=== PATIENT | male | born 1960 | race Two or more races ===

== ENCOUNTER 2020-11-07 18:16 | Inpatient (IN) | payer OTHER ==
[~2020-11-07] VITALS: Ht 182.9 cm; Wt 99.9 kg
[2020-11-07 20:04] LABS: Basophils # (auto) 0.1 10 ^3/uL (0-0.2); Basophils % (auto) 0.5 % (0.0-2.0); Eosinophils # (auto) 0.1 10 ^3/uL (0-0.8); Eosinophils % (auto) 0.8 % (0.0-7.0); Hematocrit 44.1 % (41.0-53.0); Hemoglobin 15.6 g/dL (13.5-17.5); Lymphocytes # (auto) 0.8 10 ^3/uL (0.4-5.4); Lymphocytes % (auto) 7.1 % (10.0-50.0); Mean Corpuscular Hemoglobin 31.5 pg (28.0-32.0); Mean Corpuscular Hgb Conc. 35.5 g/dL (32.0-36.0); Mean Corpuscular Volume 88.8 fL (80.0-100.0); Monocytes # (auto) 0.9 10 ^3/uL (0-1.3); Neutrophils # (auto) 9.5 10 ^3/uL (1.6-8.6); Neutrophils % (auto) 83.6 % (37.0-80.0); Red Blood Cells 4.96 10^6/uL (4.5-5.90); Red Cell Distribution Width 13.1 % (11.8-14.3); White Blood Cell 11.4 10^3/uL (4.4-10.8)
[2020-11-07] MEDS ORDERED: FAMOTIDINE (10MG/ML) 2ML VL IV ONE (20:15)
[2020-11-07] MEDS ORDERED: ACETAMINOPHEN 325 MG TAB PO ONE (20:15)
[2020-11-07 20:24] LABS: INR 1.1 (0.9-1.15); Partial Thromboplastin Time 26.2 sec (23.0-31.2)
[2020-11-07 20:30] LABS: Albumin 3.1 g/dL (3.4-5.0); BUN/Creatinine Ratio 14.3; Magnesium 2.4 mg/dL (1.6-2.6); Potassium 3.4 mmol/L (3.5-5.1)
[2020-11-07 20:35] LABS: Bilirubin, Total 0.6 mg/dL (0.2-1.0); Total Protein 7.4 g/dL (6.4-8.2)
[2020-11-07] MEDS ORDERED: CLOPIDOGREL BISULFATE 75 MG TAB PO ONE (20:45)
[2020-11-07] MEDS ORDERED: HEPARIN DRIP/D5W 100UNITS/ML 250 ML IV SCH (21:00)
[2020-11-07] MEDS ORDERED: HEPARIN SODIUM (PORCINE) 5000 UNITS/ML 1ML VIAL IV ONE (21:00)
[2020-11-07] MEDS ORDERED: CLOPIDOGREL 300 MG TAB PO ONE (21:15)
[2020-11-07] MEDS ORDERED: IOHEXOL 350 MG/ML 100ML IJ ONE (21:23)
[2020-11-08] VITALS (8 sets, daily range): BP systolic 95–111; BP diastolic 64–71
[2020-11-08] MEDS ORDERED: REMDESIVIR PER PHARMACY 0 ML IV SCH (00:45)
[2020-11-08] MEDS ORDERED: NITROGLYCERIN 0.4 MG SL TAB SL PRN (00:45)
[2020-11-08] MEDS ORDERED: SODIUM CHLORIDE 0.9% 1,000 ML IV SCH (00:45)
[2020-11-08] MEDS ORDERED: MORPHINE SULF INJ 2 MG/ML SYRINGE 1ML IV PRN (00:45)
[2020-11-08] MEDS ORDERED: ONDANSETRON HCL 4 MG/2 ML VIAL IV PRN (00:45)
[2020-11-08] MEDS ORDERED: AZITHROMYCIN 500MG/ 250ML 250 ML IV ONE (00:45)
[2020-11-08] MEDS ORDERED: ACETAMINOPHEN 500 MG TAB PO PRN (00:45)
[2020-11-08] MEDS ORDERED: cefTRIAXone 1GM/50ML D5W 50 ML IV ONE (00:45)
[2020-11-08] MEDS ORDERED: ALBUTEROL SULF HFA 90MCG INH 200DOSE IN PRN (00:45)
[2020-11-08 01:14] LABS: Magnesium 2.3 mg/dL (1.6-2.6)
[2020-11-08 01:22] LABS: CRP High Sensitivity 2.82 mg/dL (< 0.3)
[2020-11-08 04:31] LABS: Basophils # (auto) 0.1 10 ^3/uL (0-0.2); Basophils % (auto) 0.5 % (0.0-2.0); Eosinophils # (auto) 0.1 10 ^3/uL (0-0.8); Eosinophils % (auto) 1.4 % (0.0-7.0); Hematocrit 39.6 % (41.0-53.0); Hemoglobin 14.5 g/dL (13.5-17.5); Lymphocytes # (auto) 1.1 10 ^3/uL (0.4-5.4); Lymphocytes % (auto) 11.8 % (10.0-50.0); Mean Corpuscular Hemoglobin 32.6 pg (28.0-32.0); Mean Corpuscular Volume 89.3 fL (80.0-100.0); Monocytes # (auto) 1.1 10 ^3/uL (0-1.3); Monocytes % (auto) 11.8 % (0.0-12.0); Neutrophils # (auto) 7.1 10 ^3/uL (1.6-8.6); Neutrophils % (auto) 74.5 % (37.0-80.0); Nucleated Red Blood Cells % 0.1 %; Red Blood Cells 4.44 10^6/uL (4.5-5.90); White Blood Cell 9.5 10^3/uL (4.4-10.8)
[2020-11-08 04:43] LABS: INR 1.15 (0.9-1.15); Partial Thromboplastin Time 43.9 sec (23.0-31.2)
[2020-11-08 04:50] LABS: Mean Corpuscular Hgb Conc. 36.5 g/dL (32.0-36.0)
[2020-11-08] MEDS ORDERED: IPRATROPIUM BROMIDE HFA AER IN SCH (06:00)
[2020-11-08 08:41] LABS: Albumin 2.6 g/dL (3.4-5.0); Potassium 3.6 mmol/L (3.5-5.1)
[2020-11-08 08:45] LABS: BUN/Creatinine Ratio 12.4; Bilirubin, Total 0.6 mg/dL (0.2-1.0); Total Protein 6.7 g/dL (6.4-8.2)
[2020-11-08] MEDS: cefTRIAXone 1GM/50ML D5W 50 ML IV SCH (09:59)
[2020-11-08] MEDS: DexAMETHasone SOD PHOS 10MG/1ML VIAL INJ IV SCH (09:59)
[2020-11-08] MEDS: AZITHROMYCIN 500MG/ 250ML 250 ML IV SCH (09:59)
[2020-11-08] MEDS ORDERED: ENOXAPARIN SOD 40 MG/0.4 ML SYRINGE SC SCH (10:00)
[2020-11-08] MEDS: ZINC SULFATE 220mg CAP or TAB PO SCH (10:00)
[2020-11-08] MEDS: ASPirin 81 mg TAB PO SCH (10:00)
[2020-11-08] MEDS: NITROGLYCERIN 50MG/250ML 250 ML IV SCH (10:00)
[2020-11-08] MEDS: CHOLECALCIFEROL (VITD3) 2,000 UNIT CAP/TAB PO SCH (10:00)
[2020-11-08] MEDS: PANTOPRAZOLE 40 MG TAB PO SCH (10:00)
[2020-11-08] MEDS: ASCORBIC ACID 1,000 MG TAB PO SCH (10:00)
[2020-11-08 10:59] LABS: INR 1.18 (0.9-1.15); Partial Thromboplastin Time 44.9 sec (23.0-31.2)
[2020-11-08] MEDS ORDERED: LORazepam 2MG/ML-1ML VIAL IV PRN (14:00)
[2020-11-08] MEDS ORDERED: REMDESIVIR 200 MG in NS 210ml LOADING DOSE ADULT IV ONE (15:00)
[2020-11-08] MEDS: IPRATROPIUM BROMIDE HFA AER IN SCH ×2 (18:00→22:20)
[2020-11-08 18:15] LABS: INR 1.18 (0.9-1.15); Partial Thromboplastin Time 60.5 sec (23.0-31.2)
[2020-11-08] MEDS: ALBUTEROL SULF HFA 90MCG INH 200DOSE IN PRN (18:35)
[2020-11-08] MEDS: BUDESONIDE (INHALATION) 180 MCG IH IN SCH (18:35)
[2020-11-08] MEDS: HEPARIN DRIP/D5W 100UNITS/ML 250 ML IV SCH (18:45)
[2020-11-08] MEDS: ATORVASTATIN 20 MG TAB PO SCH (23:07)
[2020-11-09] VITALS (74 sets, daily range): BP systolic 89–134; BP diastolic 53–92
[2020-11-09 00:06] LABS: INR 1.18 (0.9-1.15)
[2020-11-09 02:24] LABS: Amphetamine Screen, Urine NEGATIVE (NEGATIVE); Barbiturate Scree,Urine NEGATIVE (NEGATIVE); Benzodiazephine Screen, Urine NEGATIVE (NEGATIVE); Cannabinoid Screen, Urine POSITIVE (NEGATIVE); Cocaine Screen, Urine NEGATIVE (NEGATIVE)
[2020-11-09 02:31] LABS: Opiate Scree,Urine NEGATIVE (NEGATIVE); Phencyclidine Screen, Urine NEGATIVE (NEGATIVE)
[2020-11-09 06:10] LABS: Basophils # (auto) 0 10 ^3/uL (0-0.2); Basophils % (auto) 0.4 % (0.0-2.0); Eosinophils # (auto) 0 10 ^3/uL (0-0.8); Eosinophils % (auto) 0.1 % (0.0-7.0); Hematocrit 39.8 % (41.0-53.0); Hemoglobin 14.6 g/dL (13.5-17.5); INR 1.16 (0.9-1.15); Lymphocytes % (auto) 10.1 % (10.0-50.0); Mean Corpuscular Hemoglobin 32.5 pg (28.0-32.0); Mean Corpuscular Hgb Conc. 36.6 g/dL (32.0-36.0); Mean Corpuscular Volume 88.8 fL (80.0-100.0); Monocytes # (auto) 0.9 10 ^3/uL (0-1.3); Monocytes % (auto) 9.2 % (0.0-12.0); Neutrophils # (auto) 7.7 10 ^3/uL (1.6-8.6); Neutrophils % (auto) 80.2 % (37.0-80.0); Partial Thromboplastin Time 67.7 sec (23.0-31.2); Red Blood Cells 4.48 10^6/uL (4.5-5.90); Red Cell Distribution Width 12.7 % (11.8-14.3); White Blood Cell 9.6 10^3/uL (4.4-10.8)
[2020-11-09 06:25] LABS: Albumin 2.9 g/dL (3.4-5.0); BUN/Creatinine Ratio 14.5; Calcium 8.7 mg/dL (8.5-10.1); Potassium 3.9 mmol/L (3.5-5.1)
[2020-11-09 06:30] LABS: Bilirubin, Total 0.5 mg/dL (0.2-1.0); Total Protein 7.3 g/dL (6.4-8.2)
[2020-11-09] MEDS ORDERED: guaiFENesin-DM 100/10mg/5ml SYR PO PRN (08:45)
[2020-11-09] MEDS: cefTRIAXone 1GM/50ML D5W 50 ML IV SCH (08:53)
[2020-11-09] MEDS: DexAMETHasone SOD PHOS 10MG/1ML VIAL INJ IV SCH (08:54)
[2020-11-09] MEDS: ASPirin 81 mg TAB PO SCH (08:55)
[2020-11-09] MEDS: PANTOPRAZOLE 40 MG TAB PO SCH (08:56)
[2020-11-09] MEDS: CHOLECALCIFEROL (VITD3) 2,000 UNIT CAP/TAB PO SCH (08:56)
[2020-11-09] MEDS: ASCORBIC ACID 1,000 MG TAB PO SCH (08:56)
[2020-11-09] MEDS: ZINC SULFATE 220mg CAP or TAB PO SCH (08:56)
[2020-11-09] MEDS: BUDESONIDE (INHALATION) 180 MCG IH IN SCH ×2 (09:03→18:53)
[2020-11-09] MEDS: ALBUTEROL SULF HFA 90MCG INH 200DOSE IN PRN ×2 (09:03→18:53)
[2020-11-09] MEDS: IPRATROPIUM BROMIDE HFA AER IN SCH ×4 (09:03→23:00)
[2020-11-09] MEDS: HEPARIN DRIP/D5W 100UNITS/ML 250 ML IV SCH (09:11)
[2020-11-09] MEDS: NITROGLYCERIN 50MG/250ML 250 ML IV SCH (09:11)
[2020-11-09] MEDS: AZITHROMYCIN 500MG/ 250ML 250 ML IV SCH (10:31)
[2020-11-09] MEDS ORDERED: MIDAZOLAM HCL 2MG/2ML 2ml VIAL (1mg/ml) ONE ×2 (14:04→15:13)
[2020-11-09] MEDS ORDERED: ANGIOMAX 250 MG VIAL IV ONE (14:04)
[2020-11-09] MEDS ORDERED: VERAPAMIL 2.5MG/ML INJ 2ML VIAL IV ONE (14:04)
[2020-11-09] MEDS ORDERED: fentaNYL CITRATE 100 MCG/2 ML VL ONE ×2 (14:04→15:13)
[2020-11-09] MEDS ORDERED: SODIUM CHL 0.9% 50 ML ONE (14:05)
[2020-11-09] MEDS ORDERED: HEPARIN SODIUM (PORCINE) 5000 UNITS/ML 1ML VIAL ONE (14:05)
[2020-11-09] MEDS ORDERED: LIDOCAINE 2%HCL (LOCAL ANESTH.) INJ 20ML MDV ONE (14:14)
[2020-11-09] MEDS ORDERED: IODIXANOL 320MG/ML 100ML BTL IV ONE ×2 (14:51→15:26)
[2020-11-09] MEDS ORDERED: ASPirin 81 mg TAB ONE (15:42)
[2020-11-09] MEDS ORDERED: TICAGRELOR 90 MG TAB ONE (15:42)
[2020-11-09] MEDS: REMDESIVIR 100mg 100 MG in SODIUM CHL 0.9% 230 ML IV SCH (16:54)
[2020-11-09] MEDS: ATORVASTATIN 20 MG TAB PO SCH (22:20)
[2020-11-09] MEDS: TICAGRELOR 90 MG TAB PO SCH (22:20)
[2020-11-09] MEDS: TEMAZEPAM 15 MG CAP PO PRN (22:53)
[2020-11-10 06:03] VITALS: BP 119/80
[2020-11-10] MEDS: BUDESONIDE (INHALATION) 180 MCG IH IN SCH ×2 (06:18→22:00)
[2020-11-10] MEDS: ALBUTEROL SULF HFA 90MCG INH 200DOSE IN PRN ×3 (06:18→19:47)
[2020-11-10] MEDS: IPRATROPIUM BROMIDE HFA AER IN SCH ×4 (06:18→22:00)
[2020-11-10 06:27] LABS: INR 1.14 (0.9-1.15)
[2020-11-10 06:38] LABS: Potassium 3.7 mmol/L (3.5-5.1)
[2020-11-10 06:49] LABS: Albumin 2.5 g/dL (3.4-5.0); BUN/Creatinine Ratio 16.9; Bilirubin, Total 0.4 mg/dL (0.2-1.0); Calcium 8.2 mg/dL (8.5-10.1); Total Protein 7.2 g/dL (6.4-8.2)
[2020-11-10 09:00] VITALS: BP 102/66
[2020-11-10] MEDS: cefTRIAXone 1GM/50ML D5W 50 ML IV SCH (09:46)
[2020-11-10] MEDS: ASPirin-EC 81 mg tab PO SCH (10:10)
[2020-11-10] MEDS: PANTOPRAZOLE 40 MG TAB PO SCH (10:10)
[2020-11-10] MEDS: TICAGRELOR 90 MG TAB PO SCH ×2 (10:10→21:54)
[2020-11-10] MEDS: DexAMETHasone SOD PHOS 10MG/1ML VIAL INJ IV SCH (10:10)
[2020-11-10] MEDS: ASPirin 81 mg TAB PO SCH (10:10)
[2020-11-10] MEDS: ZINC SULFATE 220mg CAP or TAB PO SCH (10:10)
[2020-11-10] MEDS: CHOLECALCIFEROL (VITD3) 2,000 UNIT CAP/TAB PO SCH (10:10)
[2020-11-10] MEDS: ASCORBIC ACID 1,000 MG TAB PO SCH (10:10)
[2020-11-10 12:30] VITALS: BP 118/73
[2020-11-10] MEDS: AZITHROMYCIN 500MG/ 250ML 250 ML IV SCH (13:23)
[2020-11-10] MEDS: REMDESIVIR 100mg 100 MG in SODIUM CHL 0.9% 230 ML IV SCH (16:48)
[2020-11-10 17:00] VITALS: BP 110/83
[2020-11-10 21:46] VITALS: BP 117/80
[2020-11-10] MEDS: ATORVASTATIN 20 MG TAB PO SCH (21:55)
[2020-11-10] MEDS: TEMAZEPAM 15 MG CAP PO PRN (23:37)
[2020-11-11 05:30] VITALS: BP 108/79
[2020-11-11] MEDS: ALBUTEROL SULF HFA 90MCG INH 200DOSE IN PRN ×2 (05:52→11:17)
[2020-11-11] MEDS: IPRATROPIUM BROMIDE HFA AER IN SCH ×3 (05:52→18:00)
[2020-11-11] MEDS: BUDESONIDE (INHALATION) 180 MCG IH IN SCH (05:53)
[2020-11-11 08:51] VITALS: BP 106/68
[2020-11-11 09:17] LABS: Albumin 2.6 g/dL (3.4-5.0); Calcium 8.5 mg/dL (8.5-10.1); Potassium 4.1 mmol/L (3.5-5.1)
[2020-11-11 09:20] LABS: BUN/Creatinine Ratio 15.6; Bilirubin, Total 0.5 mg/dL (0.2-1.0); Total Protein 7.3 g/dL (6.4-8.2)
[2020-11-11] MEDS: ASPirin 81 mg TAB PO SCH (10:43)
[2020-11-11] MEDS: DexAMETHasone SOD PHOS 10MG/1ML VIAL INJ IV SCH (10:43)
[2020-11-11] MEDS: AZITHROMYCIN 500MG/ 250ML 250 ML IV SCH (10:43)
[2020-11-11] MEDS: cefTRIAXone 1GM/50ML D5W 50 ML IV SCH (10:43)
[2020-11-11] MEDS: PANTOPRAZOLE 40 MG TAB PO SCH (10:44)
[2020-11-11] MEDS: ASPirin-EC 81 mg tab PO SCH (10:44)
[2020-11-11] MEDS: ASCORBIC ACID 1,000 MG TAB PO SCH (10:44)
[2020-11-11] MEDS: ZINC SULFATE 220mg CAP or TAB PO SCH (10:44)
[2020-11-11] MEDS: CHOLECALCIFEROL (VITD3) 2,000 UNIT CAP/TAB PO SCH (10:44)
[2020-11-11] MEDS: TICAGRELOR 90 MG TAB PO SCH ×2 (10:44→22:21)
[2020-11-11 12:08] VITALS: BP 120/68
[2020-11-11 15:01] VITALS: BP 120/68
[2020-11-11] MEDS: REMDESIVIR 100mg 100 MG in SODIUM CHL 0.9% 230 ML IV SCH (15:20)
[2020-11-11 16:40] VITALS: BP 125/81
[2020-11-11 22:00] VITALS: BP 111/72
[2020-11-11] MEDS ORDERED: ATORVASTATIN 20 MG TAB PO SCH (22:00)
[2020-11-12] MEDS: BUDESONIDE (INHALATION) 180 MCG IH IN SCH ×2 (00:40→07:43)
[2020-11-12] MEDS: IPRATROPIUM BROMIDE HFA AER IN SCH ×2 (00:40→07:43)
[2020-11-12] MEDS: ALBUTEROL SULF HFA 90MCG INH 200DOSE IN PRN ×2 (00:41→07:44)
[2020-11-12 05:00] VITALS: BP 112/74
[2020-11-12 05:40] LABS: Basophils # (auto) 0.1 10 ^3/uL (0-0.2); Basophils % (auto) 0.5 % (0.0-2.0); Eosinophils # (auto) 0 10 ^3/uL (0-0.8); Eosinophils % (auto) 0.1 % (0.0-7.0); Hematocrit 39.2 % (41.0-53.0); Hemoglobin 13.8 g/dL (13.5-17.5); Lymphocytes # (auto) 0.5 10 ^3/uL (0.4-5.4); Lymphocytes % (auto) 2.9 % (10.0-50.0); Mean Corpuscular Hemoglobin 31.8 pg (28.0-32.0); Mean Corpuscular Hgb Conc. 35.2 g/dL (32.0-36.0); Mean Corpuscular Volume 90.3 fL (80.0-100.0); Monocytes # (auto) 1.1 10 ^3/uL (0-1.3); Neutrophils # (auto) 14.5 10 ^3/uL (1.6-8.6); Neutrophils % (auto) 89.5 % (37.0-80.0); Red Blood Cells 4.34 10^6/uL (4.5-5.90); Red Cell Distribution Width 13.1 % (11.8-14.3); White Blood Cell 16.2 10^3/uL (4.4-10.8)
[2020-11-12 06:05] LABS: Calcium 8.3 mg/dL (8.5-10.1)
[2020-11-12 06:11] LABS: Albumin 2.4 g/dL (3.4-5.0); BUN/Creatinine Ratio 22.1; Bilirubin, Total 0.4 mg/dL (0.2-1.0); Total Protein 6.9 g/dL (6.4-8.2)
[2020-11-12 08:36] VITALS: BP 119/72
[2020-11-12] MEDS ORDERED: ASPirin 81 mg TAB PO SCH (10:00)
== END 2020-11-12 09:30 | disposition short-term general hospital (02) | DRG 246 ==
LOC: EDBD 18:16 → ER 18:20 → TELE 11-08 00:31 → DOU IN ICU 11-08 22:00 → TELE-EAST 11-09 21:45
PROVIDERS: ADMIT Nurse Practitioner; ATTEND Internal Medicine
PROC: XW033E5 Introduction of Remdesivir Anti-infective into Peripheral Vein, Percutaneous Approach, New Technology Group 5 (ICD-10-PCS; 2020-11-08)
PROC: 027034Z Dilation of Coronary Artery, One Artery with Drug-eluting Intraluminal Device, Percutaneous Approach (ICD-10-PCS; principal; 2020-11-09)
PROC: 4A023N7 Measurement of Cardiac Sampling and Pressure, Left Heart, Percutaneous Approach (ICD-10-PCS; 2020-11-09)
PROC: B211YZZ Fluoroscopy of Multiple Coronary Arteries using Other Contrast (ICD-10-PCS; 2020-11-09)
PROC: B215YZZ Fluoroscopy of Left Heart using Other Contrast (ICD-10-PCS; 2020-11-09)
PROC: B240ZZ3 Ultrasonography of Single Coronary Artery, Intravascular (ICD-10-PCS; 2020-11-09)
DX: I21.4 Non-ST elevation (NSTEMI) myocardial infarction (principal); J12.82 Pneumonia due to coronavirus disease 2019; J96.01 Acute respiratory failure with hypoxia; U07.1 COVID-19; E44.0 Moderate protein-calorie malnutrition; E78.5 Hyperlipidemia, unspecified; E87.6 Hypokalemia; F12.90 Cannabis use, unspecified, uncomplicated; F17.200 Nicotine dependence, unspecified, uncomplicated; F43.10 Post-traumatic stress disorder, unspecified; Z98.2 Presence of cerebrospinal fluid drainage device; Z88.8 Allergy status to other drugs, medicaments and biological substances; Z79.899 Other long term (current) drug therapy; Z68.29 Body mass index [BMI] 29.0-29.9, adult
CPT/HCPCS: 36415; 71045; 71275; 80053; 80061; 80307; 82728; 83605; 83615; 83735; 83880; 84443; 84484; 85025; 85379; 85610; 85730; 86141; 87081; 87426; 93005; 93306; 93970; 94640; 96365; 96366; 96367; 96368; 96375; 99152; 99153; C1874; G0378; J0696; J1100; J2250; J3490; Q9967